=== PATIENT | female | born 1990 | race Caucasian/White ===

== ENCOUNTER 2023-08-20 13:47 | Outpatient (CLI) | payer BC, SELFPAY ==
--- NOTE | 2023-08-20 14:00 | US_ITS ---
Patient: HARRISON FRANZ Facility:?[facility] Patient ID:?[id number] Site Patient ID:?[id number]. Site :?[id number] Study:?US-OB Pelvis TV OB<14wks-08/20/2023 2:34:50 PM Ordering Physician:?Araceli Busch Final Report: INDICATION: First trimester scan, establish dates. COMPARISON: None. TECHNIQUE: Real-time cantu-scale imaging of the pelvis was performed. FINDINGS: Sonographic imaging demonstrates a single living intrauterine gestation. The embryo demonstrates a regular cardiac rate measuring 159 beats per minute. The embryo`s crown-rump length measurement of 2.0 cm corresponds to a gestational age of 8 weeks 4 days with a sonographic due date of 03/27/2024. There is a normal-appearing yolk sac. There are no gross abnormalities noted within the embryo at this early state of development. The gestational sac has a normal appearance. There is no evidence of a perigestational hemorrhage. The amount of fluid within the sac appears appropriate for gestational age. The cervix is closed. The myometrium appears normal. Bilateral corpus luteal cysts. There are no suspicious fluid collections noted in the cul-de-sac. IMPRESSION: Normal first trimester OB ultrasound exam. Gestational age calculated at 8 weeks 4 days with a sonographic due date of 03/27/2024. Dictated by Julio César Case MD @ 08/21/2023 10:15:19 AM Signed by:?Julio César Case MD @08/21/2023 10:15:19 AM (Electronic Signature)
== END 2023-08-20 13:48 | disposition home or self-care (01) ==
LOC: US 13:48
PROVIDERS: Visit Provider Advanced Practice Midwife
DX: Z34.91 Encounter for supervision of normal pregnancy, unspecified, first trimester (principal); Z3A.08 8 weeks gestation of pregnancy
CPT/HCPCS: 76817; 86703; 86706; 86803; 86850; 86900; 86901; 87086; 87340; 87491; 87591

== ENCOUNTER 2023-08-20 14:58 | Outpatient (CLI) | payer BC, SELFPAY ==
[2023-08-20 18:46] LABS: Chlamydia DNA Amplified* NOT DETECTED (No Detected); GC DNA Amplified* NOT DETECTED (No Detected)
== END 2023-08-20 14:59 | disposition home or self-care (01) ==
PROVIDERS: Visit Provider Registered Nurse
DX: Z34.91 Encounter for supervision of normal pregnancy, unspecified, first trimester (principal); Z3A.01 Less than 8 weeks gestation of pregnancy
CPT/HCPCS: 86592; 86703; 86704; 86706; 86762; 86787; 86803; 86850; 86900; 86901; 87086; 87340; 87491; 87591

== ENCOUNTER 2024-01-05 15:23 | Outpatient (CLI) | payer BC, SELFPAY | END 2024-01-05 15:24 | disposition home or self-care (01) | LOC: NFLDREF 15:24 | PROVIDERS: Visit Provider Obstetrics & Gynecology | DX: O09.513 Supervision of elderly primigravida, third trimester (principal); O26.893 Other specified pregnancy related conditions, third trimester; Z67.91 Unspecified blood type, Rh negative; Z3A.28 28 weeks gestation of pregnancy | CPT/HCPCS: 86592; 86850; J2791 ==

== ENCOUNTER 2024-02-02 13:55 | Outpatient (CLI) | payer BC, SELFPAY ==
--- NOTE | 2024-02-02 14:00 | CRLHL7_ITS ---
For Patients: As a result of the Century Cures Act, medical imaging exams and procedure reports are released immediately into your electronic medical record. You may view this report before your referring provider. If you have questions, please contact your health care provider. INDICATION: Size date discrepancy COMPARISON: 08/20/2023 TECHNIQUE: Real time cantu scale imaging of the fetus was performed. FINDINGS: Sonographic imaging demonstrates a single living intrauterine gestation. Fetus demonstrates a regular cardiac rate of 145 beats per minute. Fetus has a vertex position. The placenta lies posteriorly. Amniotic fluid volume appears normal and there is a single deepest vertical pocket: 5.8 cm. The estimated weight is 2389gm which lies at the 93rd %. BPD 68th percentile. HC 81st percentile. AC 96th percentile. FL 79th percentile. The HC/AC ratio measures 1.02 range (0.94-1.11). IMPRESSION: Sonographic gestational age 34 weeks 1 day and sonographic due date of 03/14/2024. Sonographic age 13 days ahead of the clinical age. Estimated weight 93rd percentile. Abdominal circumference is 96th percentile. Dictated by Julio César Case MD @ 02/03/2024 1:32:18 PM (Electronically Signed)
== END 2024-02-02 13:56 | disposition home or self-care (01) ==
LOC: US 13:56
PROVIDERS: PCP Nurse Practitioner Family; Visit Provider Obstetrics & Gynecology
DX: O26.843 Uterine size-date discrepancy, third trimester (principal); O36.63X0 Maternal care for excessive fetal growth, third trimester, not applicable or unspecified; Z3A.34 34 weeks gestation of pregnancy
CPT/HCPCS: 76816

== ENCOUNTER 2024-02-16 13:21 | Outpatient (CLI) | payer BC, SELFPAY | END 2024-02-16 13:22 | disposition home or self-care (01) | LOC: NFLDREF 02-20 04:45 | PROVIDERS: PCP Nurse Practitioner Family; Referring Provider Nurse Practitioner Family; Visit Provider Obstetrics & Gynecology | DX: Z34.03 Encounter for supervision of normal first pregnancy, third trimester (principal) | CPT/HCPCS: 82728 ==

== ENCOUNTER 2024-02-20 12:57 | Outpatient (RCR) | payer BC, SELFPAY ==
--- NOTE | 2024-02-17 13:54 | PC.NURSE ---
Diagnosis: ROSA in
--- NOTE | 2024-02-18 10:07 | URNOTE ---
?Request received for authorization for Alexandra ([id number]). Prior authorization is not required per [facility] Ref#[id number].
[2024-02-20 13:10] VITALS: BP 117/66; PULSE 81; RESP 16; TEMP 36.4; O2SAT 97
[2024-02-20] MEDS: IRON SUCROSE COMPLEX 200 MG in 0.9 % SODIUM CHLORIDE 100 ml 440 MG IVPB (13:19)
[2024-02-20 13:40] VITALS: BP 111/73; PULSE 78; RESP 16; TEMP 36.6; O2SAT 94
== END 2024-08-18 23:59 | disposition home or self-care (01) ==
LOC: CCIC 12:57
PROVIDERS: PCP Nurse Practitioner Family; Referring Provider Nurse Practitioner Family; Visit Provider Clinical Nurse Specialist
DX: O99.013 Anemia complicating pregnancy, third trimester (principal); D50.9 Iron deficiency anemia, unspecified
CPT/HCPCS: 96374; J1756

== ENCOUNTER 2024-03-01 15:10 | Outpatient (CLI) | payer BC, SELFPAY ==
[2024-03-02 11:30] LABS: Strep B DNA Probe POSITIVE (Negative)
[2024-03-02 12:05] LABS: Strep B Susceptibility Needed? No
== END 2024-03-01 15:11 | disposition home or self-care (01) ==
LOC: NFLDREF 15:10
PROVIDERS: PCP Nurse Practitioner Family; Visit Provider Obstetrics & Gynecology
DX: Z34.93 Encounter for supervision of normal pregnancy, unspecified, third trimester (principal); Z3A.36 36 weeks gestation of pregnancy
CPT/HCPCS: 76816; 87081; 87653

== ENCOUNTER 2024-03-21 06:56 | Outpatient (CLI) | payer BC, SELFPAY ==
[2024-03-21 07:12] VITALS: PULSE 62; O2SAT 99
[2024-03-21 07:13] VITALS: BP 136/81; PULSE 60; TEMP 36.7
[2024-03-21 08:42] VITALS: BP 128/76; PULSE 58
--- NOTE | 2024-03-21 09:44 | PC.OBNST ---
NST Note NST Note Start: 03/21/24 09:40 Freq: ONCE Status: Active Protocol: Document 03/21/24 09:41 ARC (Rec: 03/21/24 09:43 ARC No Response) NST Note 1 Para (# of births) 0 EDC 03/27/24 Gestational Age In Weeks & Days 39 Weeks & 1 Days High Risk Factors Advanced Maternal Age Patient Presented with Complaint(s) of Contractions/cramping Reactive Yes Appropriate for Gestational Age Yes AMY Ackerman RN Date 03/21/24 Reactive Yes Appropriate for Gestational Age Yes AMY Roca RN Date 03/21/24 OB NST charge Yes Complete NST Note via Write Note Yes The provider's electronic signature indicates the NST is reactive/appropriate for gestational age. *Note to provider: If an addendum is required, open the patient's chart and click on the note under the Nurse/Allied Health tab.
== END 2024-03-21 09:00 | disposition home or self-care (01) ==
LOC: OB OUT 06:58 → OB 06:58
PROVIDERS: PCP Nurse Practitioner Family; Visit Provider Obstetrics & Gynecology
DX: O47.1 False labor at or after 37 completed weeks of gestation (principal); Z3A.39 39 weeks gestation of pregnancy
CPT/HCPCS: 01967; 36415; 59025; 82565; 82570; 84156; 84450; 84460; 84520; 85025; 86850; 86870; 86900; 86901; G0463; A9270; J0290; J0665; J2003; J2795; J7120

== ENCOUNTER 2024-03-21 14:47 | Inpatient (IN) | payer BC, SELFPAY ==
[2024-03-21] VITALS (87 sets, daily range): BP systolic 103–153; BP diastolic 53–88; PULSE 60–98; RESP 16–18; TEMP 36.6–37.7; O2SAT 93–100; BMI 35.0
--- NOTE | 2024-03-21 14:46 | P.LDBA_ITS ---
Subjective History of Present Illness Time Seen by Provider: 14:46 Date Seen: 03/21/24 Narrative: Bryan is being admitted to Labor and Delivery for spontaneous onset of labor. She is a 34 year old at 39 and 1/7 weeks gestation. Her full history and physical was dictated by Dr. Vasquez on 03/08/2024. Please see this for details. Specific Issues/Plans G 1 P 0 Spouse: Glenroy H&P done on 03/08/[address] Vasquez #. Advanced maternal age. * Genetic screening: negative, XX * Recommend daily baby aspirin 12 weeks. * Level 2 ultrasound 11/03/2023: SLIUP, Vtx., post placenta, no previa, 3 vessel cord. EFW 82%. No anatomic abnormalities identified. #Anemia * 28 weeks 01/05/24: hgb 10.2 * Start SlowFE QOD w/ food. * Recheck hgb at 34 weeks. # Suspected macrosomia * Size greater than date on fundal height * Growth US on 02/02/24 at 32 weeks: EFW 93%tile (2389g/5lb 4oz), AC 96.1%tile * Repeat growth at 36 weeks: EFW 76.0%tile, AC 83.0%tile. SDP 7.8 cm. # Nicotine use. Stopped smoking 02/09/2023. Stopped nicotine gum mid-July 2023. # Delta 9 THC gummies for relaxation. Advised patient to discontinue use. Rh Negative. Rhogam 01/05/2024 Covid 2022: Booster Administered at 1st OB visit. Covid 2023:02/16/24 Flu:02/16/24 Tdap: 01/18 RSV: 02/02/2024 32 wk: 02/02/2024 PHQ-9: 2; DOROTEO-7: 0 34 week hemoglobin: 10.2. IV iron on 02/20/24 GBS: Positive OB - Problem Based A/P Additional Plan (1) Spontaneous onset of labor: Status: Acute Plan 1. Admit to the Center. 2. Epidural for labor analgesia if desired. 3. GBS (+): ampicillin for prophylaxis. 4. Blood type: O negative. OB Exam Physical Exam Vital signs: Pulse BP Pulse Ox 62 138/80 98 03/21/24 13:22 03/21/24 13:22 03/21/24 13:20 Narrative: General: Pleasant, woman who is uncomfortable with contractions. Vital signs: per EMR Heart: Regular rate and rhythm without gallop, rub or murmur Chest: CTA bilaterally. Abdomen: Gravid, nontender. EFM: 140's, moderate variability, sporadic early and variable decelerations, (+) accelerations. Reactive. Category 2. TOCO: Q2-4 minutes. SVE (per nursing): 3/60%/-2 Extremities: no pain or edema
[2024-03-21 15:15] LABS: Basophils Percent Auto 0.1 % (0.0-3.0); Hematocrit 30.8 % (33.0-51.0); Hemoglobin* 10.6 gm/dL (12.0-16.0); Immature Granulocytes Pct Auto 0.3 %; Lymphocytes Percent Auto 7.8 % (20-44); Mean Corpuscular HGB Conc 34 gm/dL (32-36); Mean Corpuscular Hemoglobin 31 pg (26-34); Mean Corpuscular Volume 90 fL (80-100); Neutrophils Percent Auto 87.8 % (42.0-72.0); Platelet Count* 217 K/uL (140-440); RDW Coefficient of Variation % 13.1 % (11.5-15.5); Red Blood Count 3.41 m/uL (4.00-5.20); White Blood Count* 14.54 K/uL (4.50-11.00)
[2024-03-21] MEDS: LACTATED RINGERS 1000 ML 1,000 ML 1125 ML IV (15:16)
[2024-03-21 15:28] LABS: Slide Review Reflex No
[2024-03-21] MEDS: AMPICILLIN 2 GM in 0.9 % SODIUM CHLORIDE Mini-bag 100 ML IVPB (15:30)
[2024-03-21 15:55] LABS: Creatinine* 0.4 mg/dL (0.5-1.5); Est. Creatinine Clearance* 162.39; Estimated Glomerular Filt Rate 132 ml/min
[2024-03-21 15:56] LABS: Alanine Aminotransferase* 16 U/L (4-35); Aspartate Amino Transferase* 24 U/L (12-35); Blood Urea Nitrogen* 7 mg/dL (5-24)
[2024-03-21] MEDS: ROPIVACAINE 0.2% 100 ml 100 ML 12 MG EPIDURAL ×3 (15:58→23:55)
[2024-03-21] MEDS: LIDOCAINE 2% (PF) 5 ML VIAL EPIDURAL (15:58)
--- NOTE | 2024-03-21 16:01 | P.ANBPRC_ITS ---
[facility] Medical History Nicotine use ?Z72.0 - Tobacco use (ICD-10) Social History What is your current living situation?: I presently have a place to live Problems where you live: no known problems In the past 12 months, utilities in danger of being shut off: no In past 12 months, lack of transportation kept you from medical appts, meetings, work, or getting things needed for daily living: no In the past 12 mos, have been you worried that your food would run out before you had money to buy more?: never true In the past 12 mos, the food you bought just didn't last and you didn't have money to buy more?: never true Smoking Status: Former smoker How often does anyone, including family, friends and others, physically hurt you : never How often does anyone, including family, friends and others, insult or talk down to you: never How often does anyone, including family, friends and others, threaten you with harm: never How often does anyone, including family, friends and others, scream or curse at you: never Little interest or pleasure in doing things: not at all Feeling down, depressed, or hopeless: not at all Meds Home Medications and Allergies Home Medications ?Medication ?Instructions ?Recorded ?Confirmed ?Type ascorbic acid (vitamin C) 1,000 mg 1 g PO Q6H 08/20/23 03/21/24 History capsule cholecalciferol (vitamin D3) 25 25 mcg PO QDAY 08/20/23 03/21/24 History mcg (1,000 unit) capsule docosahexaenoic acid 200 mg mg PO 08/20/23 03/15/24 History capsule ( DHA) aspirin 81 mg tablet,delayed 81 mg PO QDAY 09/17/23 03/21/24 History release (Adult Low Dose Aspirin) Allergies Allergy/AdvReac Type Severity Reaction Status Date / Time No Known Drug Allergies Allergy Verified 03/15/24 14:37 Results Labs Labs: Laboratory Results - last 24 hr 03/21/24 15:08 WBC 14.54 H RBC 3.41 L Hgb 10.6 L Hct 30.8 L MCV 90 MCH 31 MCHC 34 RDW Coeff of Jacques 13.1 Plt Count 217 Neut % (Auto) 87.8 H Lymph % (Auto) 7.8 L [place] % (Auto) 4.0 Eos % (Auto) 0.0 Baso % (Auto) 0.1 Neut # (Auto) 12.80 H Lymph # (Auto) 1.10 [place] # (Auto) 0.60 Eos # (Auto) 0.00 Baso # (Auto) 0.00 Abs Immat Gran (auto) 0.00 Imm/Tot Granulo (auto) 0.3 BUN 7 Creatinine 0.4 L Estimated Creat Clear 162.39 Estimated GFR 132 AST 24 ALT 16 Vital Signs Vital Signs: Last Vital Signs Temp 98 F 03/21/24 15:26 Pulse 82 03/21/24 15:59 Resp 18 03/21/24 15:26 BP 137/70 03/21/24 15:59 Pulse Ox 100 03/21/24 15:58 Weight: 89.811 kg Height: 160.02 cm Anesthesia Procedures Epidural Insertion Patient Location: OB Start Time: 15:20 Stop Time: 16:02 Start Date: 03/21/24 Stop Date: 03/21/24 Reason for Block: procedure for pain Patient Position: sitting Performed By: Guille Rubio Preanesthetic Checklist: IV checked, risks and benefits discussed, surgical consent, monitors and equipment checked, pre-op evaluation, timeout performed and anesthesia consent Prep: chlorhexidine gluconate Monitoring: blood pressure monitoring, continuous pulse oximetry and heart rate Approach: midline Vertebral Space: lumbar (1-5) Epidural Technique: BRUNILDA air Needle Type: Tuohy needle Injection Technique: continuous catheter Needle gauge: 17 Needle Length (cm): 10 cm Needle Insertion Depth (cm): 7 Catheter Gauge: 19 Catheter Type: multi-orifice Catheter at skin depth (cm): 13 Test Dose Result: negative and lidocaine 1.5% with epinephrine 1 to 200,000
[2024-03-21] MEDS: BUPIVACAINE 0.25% PF 10 ML 10 ML ML EPIDURAL (16:08)
[2024-03-21] MEDS: LACTATED RINGERS 1000 ML 1,000 ML 125 ML IV (16:21)
[2024-03-21 16:43] LABS: Total Protein Urine 61 mg/dL
[2024-03-21 16:44] LABS: Creatinine Urine 149.2 mg/dL; Protein Creatinine Ratio Urine 0.41 (0-0.19)
[2024-03-21] MEDS: AMPICILLIN 1 GM in 0.9 % SODIUM CHLORIDE Mini-bag 100 ML IVPB (19:30)
--- NOTE | 2024-03-21 19:47 | P.OBPN_ITS ---
Subjective Time Seen by Provider: 19:48 Date Seen: 03/21/24 Narrative: Subjective: Patient is comfortable w/ epidural. She does not have Pitocin running but has not had her contractions well monitored. Verbal consent obtained for artificial rupture of membranes. Vital signs: Per electronic medical record. EFM: Baseline 140s, positive accelerations, variable decelerations, moderate variability, nonreactive. Category 2. [place]: Contractions every 5 -8 minutes. SVE: 7 cm/90 %/0. AROM: Light meconium. Assessment: 34-year-old 1 para 0 at 39 weeks 1 days gestation spontaneous onset of labor, light meconium-stained amniotic fluid slow progress in the active phase. Plan: 1. Will start Pitocin for labor augmentation. 2. Continue epidural. 3. Second dose of ampicillin started at 7:30PM Objective Vital Signs: Last Vital Signs Temp 98.3 F 03/21/24 19:22 Pulse 77 03/21/24 19:37 Resp 16 03/21/24 19:22 BP 143/69 H 03/21/24 19:37 Pulse Ox 96 03/21/24 16:43
[2024-03-21] MEDS: OXYTOCIN 30 unit/500 ML in NS 30 UNIT/500 ML BAG IVPB (21:43)
--- NOTE | 2024-03-21 21:53 | PM.OBPNL ---
Subjective Time Seen by Provider: 21:53 Date Seen: 03/21/24 Narrative: Subjective: Patient is comfortable w/ epidural.. Reports feeling rectal pressure with contractions. Vital signs: Per electronic medical record. EFM: Baseline 140s, positive accelerations, sporadic small variable decelerations, moderate variability, reactive. Category to. [place]: Contractions every 2 minutes. SVE: 7 cm/90 %/-0. No change in dilation since 7:30 p.m. IUPC placed after verbal consent obtained from the patient. Assessment: 34-year-old 1 para 0 at 39 weeks 1 days gestation undergoing spontaneous onset of labor now inadequate by intrauterine pressure catheter Plan: 1. Start Pitocin for labor augmentation. 2. Continue epidural for labor analgesia Objective Vital Signs: Last Vital Signs Temp 98.2 F 03/21/24 20:30 Pulse 82 03/21/24 21:52 Resp 16 03/21/24 20:30 BP 119/58 L 03/21/24 21:52 Pulse Ox 96 03/21/24 16:43
[2024-03-22] VITALS (24 sets, daily range): BP systolic 109–156; BP diastolic 58–80; PULSE 61–208; RESP 12–18; TEMP 36.8–37.6; O2SAT 85–100
[2024-03-22] MEDS: OXYTOCIN 30 unit/500 ML in NS 30 UNIT/500 ML BAG 300 UNIT IVPB (01:14)
[2024-03-22] MEDS: miSOPROStoL 800 MCG/4 TABLET PR (01:23)
--- NOTE | 2024-03-22 01:44 | W.PM.OBVAGDE ---
OB Procedure Vag Delivery Mother Details Mother Details: Bryan is a 34 year-old G 1 P 0 now 1 admitted on 03/21/2024 at 2:00 p.m. at 39 Weeks, 1 Days gestation for spontaneous onset of labor. AROM occurred at 7:36 p.m. on 03/21/2024 with light meconium-stained fluid. Labor Analgesia: Epidural Pitocin: Yes Labor onset: 03/21/2024 at 1:00 p.m.. Complete: 03/22/2024 at 12:49 a.m.. Pushin03/22/2024 at 12:49 a.m.. heart tones during second stage were: Category 2, reassuring moderate variability with some variable and early decelerations with contractions. Immediate return to baseline.. At 1:13 a.m. a viable female delivered in vertex direct OA presentation over 2nd degree perineal laceration and first-degree periurethral laceration via spontaneous vaginal delivery. The infant was placed on maternal abdomen. Cord was clamped and cut after a 60 second delay. Nose and mouth were bulb suctioned. weight pending. 8 at 1 minute and 9 at 5 minutes. Shoulder dystocia: No. Nuchal cord: No Placenta delivered spontaneously and complete at 1:21 a.m. with a 3 vessel cord. Laceration(s): 2nd degree perineal. Repaired using 3-0 Vicryl suture in the usual manner. Midline first-degree periurethral repaired with 4-0 Vicryl in a running manner. Blood loss: 400 mL. Blood loss measurement type: Quantitative Sponge and needles counts are correct. Specimen: Placenta Mother and were stable after delivery. Infant's name: Pending The patient is planning on breast feeding. : 1 Para: 1 Weeks Gestation: 39 Admission Date: 03/21/24 Additional Details Amniotic Membrane Status: AROM Amniotic Membrane Rupture Date: 03/21/24 Amniotic Membrane Rupture Time: 19:36 Amniotic Membrane Fluid Description: Meconium Stained Analgesia/Anesthesia Type: Epidural Waterbirth: No Pitcoin: Yes Intrapartal Events: Labor Augmentation Delivery augmentation: rupture of membranes and pitocin Labor Onset: 13:00 Complete: 00:49 Pushin:49 Heart: heart tones during second stage were category 2 with moderate variability with intermittent variable or early decelerations with contractions and immediate return to baseline. Delivery Details Delivery Date: 03/22/24 Delivery Time: 01:13 Route of delivery: Gender: Female Infant Viability: Alive; Heart Rate Present Position at Delivery: OA Delivery Details: Delivered over second-degree perineal and first-degree periurethral lacerations via spontaneous vaginal delivery. Infant was placed on maternal abdomen.? Cord was clamped and cut after a 30-60 second delay. Nose and mouth were bulb suctioned.? Infant weight pending. 1 Minute Interval Total Score: 8 5 Minute Interval Total Score: 9 Additional Details Shoulder Dystocia: No Placenta Delivery Time: 01:21 Placental Delivery Description: Spontaneous Delivery repair: Vicryl Procedure Done: Global Laceration: Perineal - 2nd Degree (And first-degree midline periurethral) Blood Loss Measurement Type: QBL Bakri Used: No Sponge/Need Count Correct: Yes Cord Vessel Description: 3 Vessels Event Summary Status: Mother and infant were stable after delivery. Disposition: floor
[2024-03-22] MEDS: LIDOCAINE 1 % PF 30 ML INJECTION (02:26)
[2024-03-22] MEDS: IBUPROFEN 600 MG TABLET PO ×4 (02:27→20:36)
[2024-03-22] MEDS: ACETAMINOPHEN 500 MG TABLET 1000 MG PO ×3 (06:03→18:08)
[2024-03-22] MEDS: DOCUSATE SODIUM 100 MG CAPSULE PO (08:38)
--- NOTE | 2024-03-22 09:45 | PM.ANPOST ---
Post Anesthesia Note Post Anesthesia Note Patient seen: Inpatient Respiratory Status: adequate Cardiovascular Status: adequate Mental Status: baseline Pain: adequate Temp: baseline Anesthetic awareness: N/A Complications: none Follow care: none
[2024-03-23] VITALS (8 sets, daily range): BP systolic 119–147; BP diastolic 76–84; PULSE 60–72; RESP 12–16; TEMP 36.4–36.9; O2SAT 98
[2024-03-23] MEDS: ACETAMINOPHEN 500 MG TABLET 1000 MG PO (00:29)
[2024-03-23 06:51] LABS: Hemoglobin* 8.5 gm/dL (12.0-16.0)
--- NOTE | 2024-03-23 08:51 | PM.OBPNVD1 ---
OB - PN:Subj Subjective Date Seen: 03/23/24 Narrative: Cassie is a 34 y.o. who was admitted to L & D for labor.? She had an uncomplicated NVD.? ?? The patient feels well.? The pain is well controlled with current medications.? She has no new complaints.? She is breast feeding and reports things are going well.? the patient has done well.? Vitals have been stable.? She has remained afebrile.? Has a good appetite, is tolerating a general diet.? She is voiding without difficulty.? She is passing gas and has not had a bowel movement.? She is ambulating and denies any dizziness.? Has Small amount of rubra lochia.?She denies feeling lightheaded or dizzy when up. OB - PN: Obj Exam Physical Exam: Vital signs: Temp Pulse Resp BP Pulse Ox O2 Del Method 98.0 F 60 16 119/77 98 Room Air 03/23/24 07:53 03/23/24 07:53 03/23/24 07:53 03/23/24 08:05 03/23/24 05:19 03/23/24 05:19 Narrative: GENERAL APPEARANCE:? normal affect, alert, no distress? MOOD:? appropriate? HEENT: normocephalic, neck supple, full ROM? CHEST:? Symmetrical chest wall movement.? Normal respiratory effort.? Clear to auscultation ? HEART:? regular rate and rhythm? ABDOMEN:? soft, non-tender. Uterine fundus is firm, at Umbilicus, Midline and is appropriate for the stage of recovery.? Bowel sounds present.? PERINEUM:? mild edema of the perineum, there is a 2nd degree laceration that is healing well.? EXTREMITIES:? normal and no edema? OB - PN: Obj Data Labs Labs: Laboratory Results - last 24 hr 03/21/24 03/23/24 15:08 06:28 Hgb 8.5 L Antibody Identification Specificity Undetermined OB - PN: A/P Delivery Assessment and Plan (1) Lactating mother: Status: Acute (2) care and examination immediately after delivery: Status: Acute (3) Anemia: Status: Acute (4) Mild preeclampsia: Status: Acute Plan day: 1 Plan: routine care Comments: G 1 P 1 status post uncomplicated NVD??? 1.? Continue route PP cares? 2.? .? May see if desired? 3.? Anticipate discharge home tomorrow? 4. ?Acute anemia.? Iron supplement ordered. 5. Mild preeclampsia with stable blood pressures at this time, routine monitoring per protocol
[2024-03-23] MEDS: FERROUS SULFATE 325 MG TABLET PO (09:13)
[2024-03-23] MEDS: DOCUSATE SODIUM 100 MG CAPSULE PO (09:13)
[2024-03-23 13:34] LABS: Rapid Plasma Reagin (RPR) Non Reactive (Non Reactive)
[2024-03-24 02:00] VITALS: BP 138/82
[2024-03-24 05:16] VITALS: BP 138/86; PULSE 76; RESP 16; TEMP 36.6; O2SAT 98
--- NOTE | 2024-03-24 08:09 | P.DS_ITS ---
DS: Providers Provider Date Seen: 03/24/24 Date of admission: 03/21/24 14:47 Primary care physician: Renetta Davila CNP Admitting Clinician: Modesta Singh MD Attending Physician on discharge: Marcie Vann CNM DS: Diagnosis Discharge Diagnosis (1) care and examination immediately after delivery: Status: Acute (2) Lactating mother: Status: Acute (3) Anemia: Status: Acute Exam Narrative: Exam Narrative: GENERAL APPEARANCE:? normal affect, alert, no distress MOOD:? appropriate CHEST:? clear to auscultation HEART:? regular rate and rhythm ABDOMEN:? soft, non-tender the uterine fundus is At Umbilicus, Midline and is appropriate for the stage of recovery. PERINEUM:? mild edema of the perineum, there is a Perineal Laceration,?2nd degree, that is healing well. EXTREMITIES:? normal and no edema Const: Vital Signs, click to edit/add: Vital Signs - 24 hr 03/23/24 12:09 03/23/24 15:43 03/23/24 16:03 Temperature 98.1 F 98.4 F Pulse Rate [Pulse Oximeter] 60 60 Respiratory Rate 16 16 Blood Pressure [Le ft Arm] 138/84 147/80 H 128/77 Pulse Oximetry Oxygen Delivery Me thod Room Air 03/23/24 21:30 03/24/24 02:00 03/24/24 05:16 Temperature 98.0 F 97.8 F Pulse Rate [Pulse Oximeter] 72 76 Respiratory Rate 16 16 Blood Pressure [Le ft Arm] 136/84 138/82 138/86 Pulse Oximetry 98 98 Oxygen Delivery Me thod Room Air Room Air Documenting provider has reviewed patient's vital signs: yes OB - DS: Summary Hospital Course Hospital Course: Bryan is a 34 y.o. G 1 P 1 who was admitted to L & D for spontaneous onset of labor and was diagnosed with Pre-e without SF during labor. ?She had a NVD that was uncomplicated. The patient feels well. ?The pain is well controlled with current medications. ?She has no new complaints. ?She is breast feeding and reports things are going okay. Meeting with . the patient has done well.? Vitals have been stable.? She has remained afebrile.? Has a good appetite, is tolerating a general diet. ?She is voiding without difficulty.? She is passing gas and has not had a bowel movement.? She is ambulating and denies any dizziness.? Has small amount of rubra lochia. She is undecided on her plan for prevention. Problems: anemia plan: Discharge home with baby. Follow up in 2 weeks and 6 weeks. , may see if needed. Encouraged her to do this even after discharge. Hgb 8.5. Iron supplement ordered orally every other day Pre-E diagnosed by elevated BP greater than 4 hours apart Labs WNL Discharge home with BP cuff if does not already have one Follow up in 3-5 days Call for signs/symptoms of preeclampsia Peripartum Data delivery method: Vaginal Laceration description: Perineal - 2nd Degree complications: none [place] Infant Gender: Female Infant Discharge Plan: Home Status at Discharge Functional status at discharge: independent ambulation Overall status at discharge: patient is progressing back to baseline Time Spent with Patient Time attestation: Total time spent providing and/or coordinating discharge services: Time spent: Less than 30 minutes Discharge Plan Discharge Disposition: Home, Self-Care Date of Admission: 03/21/24 14:47 Attending Provider on Discharge: Monica Cordoba Primary Care Provider: Renetta Davila Condition: Stable Anticipated Discharge Date/Time: 03/24/24 Discharge Medications: New docusate sodium 100 mg Capsule 100 mg PO BID PRNQty: 90 0RF ferrous sulfate 325 mg (65 mg iron) Tablet 325 mg PO Q48H Qty: 90 0RF acetaminophen 500 mg Tablet 1,000 mg PO Q6H PRNQty: 0 0RF ibuprofen 600 mg Tablet 600 mg PO Q6H PRNQty: 60 0RF Continued ascorbic acid (vitamin C) 1,000 mg capsule 1 g PO Q6H cholecalciferol (vitamin D3) 25 mcg (1,000 unit) capsule 25 mcg PO QDAY DHA 200 mg capsule 200 mg PO DAILY Discontinued aspirin [Adult Low Dose Aspirin] 81 mg tablet,delayed release (DR/EC) 81 mg PO QDAY Discharge Orders: Discharge Order (Routine); Ordered 03/24/24 Ordered By: Marcie Vann Patient Education: OB Over the Counter Medication Information, OB Vaginal/Breast Feeding Additional Instructions: Discharge instructions were reviewed with the patient including signs and symptoms of infection and home going medications Nothing vaginally for 6 weeks: no tampons or intercourse Off Work or School for 6 weeks Follow Up [facility] for a BP check?3-5 days Call with BP greater than or equal to 160/110 2-week visit: discuss feeding concerns, review control options and screen for anxiety/depression. 6-week visit for an annual exam. consultation services are available to all mothers and babies for the first year after delivery.? To make an appointment, please call [phone]. Activity Level: Activity as Tolerated Follow Up Appointments: [facility] [Provider Group] Forms: [employer] Info Instructions
[2024-03-24 08:14] VITALS: BP 129/81; PULSE 69; RESP 16; TEMP 37.1
[2024-03-24 09:01] LABS: Hemoglobin* 9.3 gm/dL (12.0-16.0)
[2024-03-24] MEDS: IBUPROFEN 600 MG TABLET PO (10:41)
[2024-03-24] MEDS: DOCUSATE SODIUM 100 MG CAPSULE PO (10:41)
[2024-03-24 13:34] VITALS: BP 127/78; PULSE 60; RESP 16; TEMP 37.2
== END 2024-03-24 14:00 | disposition home or self-care (01) | DRG 560 ==
LOC: OB OUT 14:48 → OB 14:48
PROVIDERS: Advanced Practice Midwife; Admitting Provider Obstetrics & Gynecology; PCP Nurse Practitioner Family; Visit Provider Obstetrics & Gynecology
DX: O99.02 Anemia complicating childbirth (principal); O99.824 Streptococcus B carrier state complicating childbirth; D64.9 Anemia, unspecified; O14.04 Mild to moderate pre-eclampsia, complicating childbirth; O77.0 Labor and delivery complicated by meconium in amniotic fluid; O70.1 Second degree perineal laceration during delivery; O70.0 First degree perineal laceration during delivery; O99.334 Smoking (tobacco) complicating childbirth; F17.211 Nicotine dependence, cigarettes, in remission; O99.324 Drug use complicating childbirth; F12.10 Cannabis abuse, uncomplicated; Z3A.39 39 weeks gestation of pregnancy; Z37.0 Single live birth; O47.1 False labor at or after 37 completed weeks of gestation
CPT/HCPCS: 01967; 36415; 59025; 82565; 82570; 84156; 84450; 84460; 84520; 85018; 85025; 86592; 86850; 86870; 86880; 86885; 86900; 86901; 88307; G0463; A9270; J0290; J0665; J2003; J2371; J2795; J7120

== ENCOUNTER 2024-03-26 14:16 | Outpatient (CLI) | payer BC, SELFPAY | END 2024-03-26 14:17 | disposition home or self-care (01) | PROVIDERS: PCP Nurse Practitioner Family; Visit Provider Obstetrics & Gynecology | DX: O14.95 Unspecified pre-eclampsia, complicating the puerperium (principal) | CPT/HCPCS: 82565; 84450; 84460; 84520 ==

== ENCOUNTER 2024-03-26 17:47 | Inpatient (IN) | payer BC, SELFPAY ==
[2024-03-26] VITALS (14 sets, daily range): BP systolic 129–159; BP diastolic 68–90; PULSE 57–80; RESP 16–18; TEMP 36.6–36.7; O2SAT 95–98
--- NOTE | 2024-03-26 18:06 | P.LDBA_ITS ---
Subjective History of Present Illness Narrative: Bryan is a 34-year-old G1 now P 1-0-0-1 woman who is status post normal spontaneous vaginal delivery on 03/22/2024 after presenting in spontaneous labor at 39 weeks, 2 days gestation. She was diagnosed with preeclampsia during her intrapartum course. She had an uncomplicated spontaneous vaginal delivery. She had a second-degree perineal laceration and a midline first-degree periurethral laceration. EBL was 400 mL. She gave to a female . Her was otherwise complicated by/notable for: 1. Advanced maternal age 2. Anemia 3. Suspected macrosomia 4. Use of THC gummies. During her course, she did not require any antihypertensives. Preeclampsia labs were normal during her inpatient stay. She was discharged after having been normotensive for 24 hours on day 2. She presented to clinic today for a blood pressure check. She was found to have blood pressures in the 140s over 90s. She had HELLP labs which are summarized below; in summary, her AST is greater than twice the upper limit of normal. T his qualifies for the diagnosis of preeclampsia with severe features. Her full history and physical was dictated by Dr. Vasquez on 03/08/24. Please see this for details. Specific Issues/Plans G 1 P 0 Spouse: Glenroy H&P done on 03/08/[address] Vasquez #. Advanced maternal age. * Genetic screening: negative, XX * Recommend daily baby aspirin 12 weeks. * Level 2 ultrasound 11/03/2023: SLIUP, Vtx., post placenta, no previa, 3 vessel cord. EFW 82%. No anatomic abnormalities identified. #Anemia * 28 weeks 01/05/24: hgb 10.2 * Start SlowFE QOD w/ food. * Recheck hgb at 34 weeks. # Suspected macrosomia * Size greater than date on fundal height * Growth US on 02/02/24 at 32 weeks: EFW 93%tile (2389g/5lb 4oz), AC 96.1%tile * Repeat growth at 36 weeks: EFW 76.0%tile, AC 83.0%tile. SDP 7.8 cm. # Nicotine use. Stopped smoking 02/09/2023. Stopped nicotine gum mid-July 2023. # Delta 9 THC gummies for relaxation. Advised patient to discontinue use. Rh Negative. Rhogam 01/05/2024 Covid 2022: Booster Administered at 1st OB visit. Covid 2023:02/16/24 Flu:02/16/24 Tdap: 01/18 RSV: 02/02/2024 32 wk: 02/02/2024 PHQ-9: 2; DOROTEO-7: 0 34 week hemoglobin: 10.2. IV iron on 02/20/24 GBS: Positive OB - Problem Based A/P Additional Plan (1) Pre-eclampsia affecting puerperium: Problem details: with severe features by transaminitis Status: Acute Plan Re admit for IV magnesium sulfate infusion for 24 hours. Strict ins and outs. HELLP labs every 6 hours during magnesium infusion. Limit fluid intake to 2 L orally per 24 hour period. Anticipate use of nifedipine ER 30 mg daily upon discharge; this was previously prescribed today. OB Result Labs Labs: Labs from 1433 today: Hemoglobin 8.9, hematocrit 26.0, platelets 227 BUN 8, creatinine 0.5 AST 71, ALT 85 Her last hemoglobin was 9.3 on 03/24/2024 OB Exam Physical Exam Narrative: Physical exam: General: No acute distress Psych: Alert and oriented x3, full affect HEENT: Normocephalic, atraumatic, oropharynx benign Neck: No cervical adenopathy, no thyromegaly Heart: Regular rate and rhythm, no murmur rub or gallop Lungs: Clear to auscultation bilaterally Abdomen: Normoactive bowel sounds, soft, no tenderness, rebound, or guarding, no masses, no hepatosplenomegaly, no hernias Skin: No lesions or rashes Breasts: no nodules or masses, no nipple discharge, no axillary adenopathy Lower extremities: No edema or erythema Pelvic exam: Mons normal, clitoris normal, urethral meatus normal. Labia minora and majora normal in appearance bilaterally. Perineum and anus normal appearance. Vaginal introitus normal appearance. Vagina pink and well rugated with scant white discharge. Cervix pink and without lesion. Bimanual exam reveals uterus to be soft, nontender, mobile, anteverted, of normal size and texture. No palpable adnexal masses or tenderness.
[2024-03-26] MEDS: LACTATED RINGERS 1000 ML 1,000 ML 75 ML IV (18:47)
[2024-03-26] MEDS: MAGNESIUM IV 4 GM/100 ML PIGGYBACK IVPB (18:52)
[2024-03-26] MEDS: MAGNESIUM Infusion 40 GM/1,000 ML IV.SOLN IVPB (19:22)
[2024-03-26 20:08] LABS: Hematocrit 28.6 % (33.0-51.0); Hemoglobin* 9.8 gm/dL (12.0-16.0); Mean Corpuscular HGB Conc 34 gm/dL (32-36); Mean Corpuscular Hemoglobin 32 pg (26-34); Mean Corpuscular Volume 92 fL (80-100); Platelet Count* 226 K/uL (140-440); White Blood Count* 10.05 K/uL (4.50-11.00)
[2024-03-26 20:27] LABS: Alanine Aminotransferase* 97 U/L (4-35); Aspartate Amino Transferase* 77 U/L (12-35); Blood Urea Nitrogen* 7 mg/dL (5-24); Creatinine* 0.5 mg/dL (0.5-1.5); Est. Creatinine Clearance* 129.91; Estimated Glomerular Filt Rate 125 ml/min
[2024-03-26 20:31] LABS: Slide Review Reflex No
[2024-03-27] VITALS (9 sets, daily range): BP systolic 119–156; BP diastolic 68–88; PULSE 73–82; RESP 16; TEMP 36.4–36.8; O2SAT 95–98
[2024-03-27] MEDS: IBUPROFEN 600 MG TABLET PO ×3 (01:06→17:08)
[2024-03-27] MEDS: NIFEdipine 30 MG TAB.ER.24 PO ×2 (01:31→21:02)
[2024-03-27 02:16] LABS: Hematocrit 27.2 % (33.0-51.0); Hemoglobin* 9.4 gm/dL (12.0-16.0); Mean Corpuscular HGB Conc 35 gm/dL (32-36); Mean Corpuscular Hemoglobin 31 pg (26-34); Mean Corpuscular Volume 91 fL (80-100); Platelet Count* 216 K/uL (140-440); Red Blood Count 2.99 m/uL (4.00-5.20); White Blood Count* 9.43 K/uL (4.50-11.00)
[2024-03-27 02:19] LABS: Slide Review Reflex No
[2024-03-27 02:33] LABS: Creatinine* 0.4 mg/dL (0.5-1.5); Est. Creatinine Clearance* 162.39; Estimated Glomerular Filt Rate 132 ml/min
[2024-03-27 02:34] LABS: Alanine Aminotransferase* 88 U/L (4-35); Aspartate Amino Transferase* 68 U/L (12-35); Blood Urea Nitrogen* 5 mg/dL (5-24)
[2024-03-27] MEDS: ACETAMINOPHEN 500 MG TABLET 1000 MG PO ×3 (07:10→20:31)
[2024-03-27] MEDS: LACTATED RINGERS 1000 ML 1,000 ML 75 ML IV (07:37)
--- NOTE | 2024-03-27 08:10 | PM.OBPNVD1 ---
OB - PN:Subj Subjective Time Seen by Provider: 08:15 Date Seen: 03/27/24 Narrative: Bryan is a 34-year-old seen on day 5 for readmission for preeclampsia with severe features (new transaminitis). She is status post on 03/22 following induction for preeclampsia without severe features. At a blood pressure check and lab check yesterday, she is found to have new transaminitis was admitted. Magnesium sulfate was started. She was initiated on nifedipine 30 mg XL daily overnight. This morning, she is feeling well. Denies headache, vision changes right upper quadrant pain. No acute concerns. Pain is well controlled, lochia is minimal. OB - PN: Obj Exam Physical Exam: Vital signs: Temp Pulse Resp BP Pulse Ox O2 Del Method 97.9 F 81 16 138/86 97 Room Air 03/27/24 07:01 03/27/24 07:01 03/27/24 07:01 03/27/24 07:01 03/27/24 07:01 03/27/24 07:01 Narrative: Physical exam: General: No acute distress Psych: Alert and oriented x3, full affect Heart: Regular rate and rhythm, no murmur rub or gallop Lungs: Clear to auscultation bilaterally Abdomen: Nontender. Fundus at 2 below umbilicus. Extremities: Mild edema bilaterally. No calf swelling, tenderness, erythema or warmth. OB - PN: Obj Data Labs Labs: Laboratory Results - last 24 hr 03/26/24 03/27/24 20:02 02:13 WBC 10.05 9.43 RBC 3.10 L 2.99 L Hgb 9.8 L 9.4 L Hct 28.6 L 27.2 L MCV 92 91 MCH 32 31 MCHC 34 35 Plt Count 226 216 BUN 7 5 Creatinine 0.5 0.4 L Estimated Creat Clear 129.91 162.39 Estimated GFR 125 132 Magnesium 5.0 H* AST 77 H 68 H ALT 97 H 88 H OB - PN: A/P Delivery Assessment and Plan (1) Pre-eclampsia affecting puerperium: Problem details: with severe features by transaminitis Status: Acute Plan Bryan is a 34yo seen on hospital day 2 following readmission for preeclampsia with SF by new transaminitis. She is s/p on 03/22 following IOL for preE without SF. She is feeling well this morning with no acute concerns. Benign physical exam. - Antihypertensive regimen includes nifedipine 30 mg XL daily, last dose at 0100. Plan to give next dose this evening at 2100 for ease of administration (avoiding sleep disruption) moving forward. Diligent blood pressure monitoring ongoing. Plan to increase her long-acting antihypertensive regimen is needed or treat any sustained severe range blood pressures. - Magnesium sulfate is ongoing at 2 grams/hour, to be discontinued this evening at 1900 - Serial HELLP labs ongoing - last set at 0200 were stable to mildly improved with AST 68 (from 77), ASL 88 (from 97), Plt 216 (226),Cr 0.4 (0.5) - Robust UOP noted, 2100cc in last 8 hours - Routine PP cares Disposition: Inpatient overnight, hopeful for DC to home tomorrow
[2024-03-27 08:32] LABS: Hemoglobin* 10.5 gm/dL (12.0-16.0); Mean Corpuscular HGB Conc 34 gm/dL (32-36); Mean Corpuscular Hemoglobin 31 pg (26-34); Mean Corpuscular Volume 92 fL (80-100); Platelet Count* 260 K/uL (140-440); Red Blood Count 3.38 m/uL (4.00-5.20); White Blood Count* 9.26 K/uL (4.50-11.00)
[2024-03-27 08:34] LABS: Slide Review Reflex No
[2024-03-27 08:46] LABS: Alanine Aminotransferase* 96 U/L (4-35); Aspartate Amino Transferase* 67 U/L (12-35); Blood Urea Nitrogen* 5 mg/dL (5-24); Creatinine* 0.5 mg/dL (0.5-1.5); Est. Creatinine Clearance* 129.91; Estimated Glomerular Filt Rate 125 ml/min
[2024-03-27 14:04] LABS: Hematocrit 31.8 % (33.0-51.0); Hemoglobin* 10.8 gm/dL (12.0-16.0); Mean Corpuscular HGB Conc 34 gm/dL (32-36); Mean Corpuscular Hemoglobin 31 pg (26-34); Mean Corpuscular Volume 91 fL (80-100); Platelet Count* 282 K/uL (140-440); White Blood Count* 10.29 K/uL (4.50-11.00)
[2024-03-27 14:06] LABS: Slide Review Reflex No
[2024-03-27 14:18] LABS: Alanine Aminotransferase* 95 U/L (4-35); Aspartate Amino Transferase* 64 U/L (12-35); Blood Urea Nitrogen* 5 mg/dL (5-24); Creatinine* 0.5 mg/dL (0.5-1.5); Est. Creatinine Clearance* 129.91; Estimated Glomerular Filt Rate 125 ml/min
[2024-03-27] MEDS: MAGNESIUM Infusion 40 GM/1,000 ML IV.SOLN IVPB (14:30)
[2024-03-27 19:56] LABS: Hematocrit 28.8 % (33.0-51.0); Hemoglobin* 9.8 gm/dL (12.0-16.0); Mean Corpuscular HGB Conc 34 gm/dL (32-36); Mean Corpuscular Hemoglobin 31 pg (26-34); Mean Corpuscular Volume 92 fL (80-100); Platelet Count* 261 K/uL (140-440); Red Blood Count 3.12 m/uL (4.00-5.20); White Blood Count* 9.93 K/uL (4.50-11.00)
[2024-03-27 20:00] LABS: Slide Review Reflex No
[2024-03-27 20:09] LABS: Alanine Aminotransferase* 77 U/L (4-35); Creatinine* 0.5 mg/dL (0.5-1.5); Est. Creatinine Clearance* 129.91; Estimated Glomerular Filt Rate 125 ml/min
[2024-03-27 20:10] LABS: Blood Urea Nitrogen* 10 mg/dL (5-24)
[2024-03-27 21:02] LABS: Aspartate Amino Transferase* 48 U/L (12-35)
[2024-03-28] VITALS (15 sets, daily range): BP systolic 132–156; BP diastolic 77–89; PULSE 63–82; RESP 15–16; TEMP 36.6–36.8; O2SAT 95–97
[2024-03-28] MEDS: IBUPROFEN 600 MG TABLET PO ×3 (01:04→17:01)
[2024-03-28 01:57] LABS: Hematocrit 29.3 % (33.0-51.0); Hemoglobin* 10.1 gm/dL (12.0-16.0); Mean Corpuscular HGB Conc 35 gm/dL (32-36); Mean Corpuscular Hemoglobin 32 pg (26-34); Mean Corpuscular Volume 91 fL (80-100); Platelet Count* 260 K/uL (140-440); Red Blood Count 3.21 m/uL (4.00-5.20); White Blood Count* 10.16 K/uL (4.50-11.00)
[2024-03-28 02:21] LABS: Aspartate Amino Transferase* 45 U/L (12-35); Creatinine* 0.5 mg/dL (0.5-1.5); Est. Creatinine Clearance* 129.91; Estimated Glomerular Filt Rate 125 ml/min
[2024-03-28 02:22] LABS: Alanine Aminotransferase* 76 U/L (4-35); Blood Urea Nitrogen* 13 mg/dL (5-24)
[2024-03-28 03:06] LABS: Slide Review Reflex No
[2024-03-28] MEDS: ACETAMINOPHEN 500 MG TABLET 1000 MG PO ×2 (03:23→12:38)
--- NOTE | 2024-03-28 06:21 | P.OBPN_ITS ---
OB - PN:Subj Subjective Date Seen: 03/28/24 Narrative: Bryan is a 34-year-old seen on day 6 for readmission for preeclampsia with severe features (new transaminitis). She is status post on 03/22 following induction for preeclampsia without severe features. At a blood pressure check and lab check yesterday, she is found to have new transaminitis was admitted. Magnesium sulfate was administered for 24 hours, ending at 1900 on 03/27. She was initiated on nifedipine 30 mg XL at 0100 on 03/28, last dose 2100. Overnight, her blood pressures continued to be above goal with a majority >140/90. Nifedipine was switched to 30mg BID this morning at 0630. She is feeling well overall, but does have a headache. Headache has been constant since yesterday, but does improve with ibuprofen and tyneol. She denies vision changes right upper quadrant pain. No acute concerns. Pain is well controlled, lochia is minimal. She is intermittently tearful, hopeful to discharge to home. We discussed that her BP is not quite optimally controlled, hence the addition o f nifedipine Xl 30mg to now BID. She is normotensive this morning. Generally speaking, she does remain safe from a blood pressure perspective given no severe range BPs. I am reassured that her headache responds to medications, serial labs showed interval improvement. We decided to monitor her BPs Q2H this morning and plan for dismissal to home this afternoon. Addendum at 1700: Ultimately, her BP remained suboptimally controlled with a majority of values above 140/90 throughout the day. Labetolol 200mg BID was added to further optimize her antihypertensive regimen. Recommendation was made for patient to remain inpatient overnight with likely discharge tomorrow pending BP improvement. OB - PN: Obj Exam Physical Exam: Vital signs: Temp Pulse Resp BP Pulse Ox O2 Del Method 98.0 F 72 15 145/79 H 96 Room Air 03/28/24 05:08 03/28/24 05:08 03/28/24 05:08 03/28/24 05:08 03/28/24 05:08 03/28/24 05:08 Narrative: General: No acute distress Psych: Alert and oriented x3, full affect Heart: Regular rate and rhythm, no murmur rub or gallop Lungs: Clear to auscultation bilaterally Abdomen: Nontender. Fundus at 2 below umbilicus. Extremities: Mild edema bilaterally. No calf swelling, tenderness, erythema or warmth. OB - PN: Obj Data Labs Labs: Laboratory Results - last 24 hr 03/27/24 03/27/24 03/27/24 08:25 13:56 19:51 WBC 9.26 10.29 9.93 RBC 3.38 L 3.50 L 3.12 L Hgb 10.5 L 10.8 L 9.8 L Hct 31.0 L 31.8 L 28.8 L MCV 92 91 92 MCH 31 31 31 MCHC 34 34 34 Plt Count 260 282 261 BUN 5 5 10 Creatinine 0.5 0.5 0.5 Estimated Creat Clear 129.91 129.91 129.91 Estimated GFR 125 125 125 AST 67 H 64 H 48 H ALT 96 H 95 H 77 H 03/28/24 01:55 WBC 10.16 RBC 3.21 L Hgb 10.1 L Hct 29.3 L MCV 91 MCH 32 MCHC 35 Plt Count 260 BUN 13 Creatinine 0.5 Estimated Creat Clear 129.91 Estimated GFR 125 AST 45 H ALT 76 H OB - PN: A/P Delivery Assessment and Plan (1) Pre-eclampsia affecting puerperium: Problem details: with severe features by transaminitis Status: Acute Plan Bryan is a 34yo seen on hospital day 3 following readmission for preeclampsia with SF by new transaminitis. She is s/p on 03/22 following IOL for preE without SF. She has been feeling well aside from headache, this does improve with tylenol/ibuprofen. Mag course is complete, interval improvement in her HELLP labs noted. Benign physical exam. Plan this morning was to monitor her BPs for several hours since we adjusted her nifedipine to 30mg BID this morning with plan to discharge in the afternoon. Unfortunately, her BP remained above goal where labetolol 200mg BID was added. Recommendation was made to stay inpatient for further BP optimization overnight. - Antihypertensive regimen includes nifedipine 30 mg XL BID and labetolol 200mg BID. Diligent blood pressure monitoring ongoing. Plan to increase her long- acting antihypertensive regimen is needed or treat any sustained severe range blood pressures. - Magnesium sulfate course x 24 hours complete - Serial HELLP labs demonstrated improvement, plan to recheck as needed - Robust diuresis ongoing - Routine PP cares Hopeful for dismissal to home tomorrow AM pending BP control.
[2024-03-28] MEDS: NIFEdipine 30 MG TAB.ER.24 PO ×2 (06:27→20:57)
--- NOTE | 2024-03-28 09:02 | P.DS_ITS ---
DS: Providers Provider Time Seen by Provider: 09:02 Date Seen: 03/28/24 Date of admission: 03/26/24 17:47 Primary care physician: Renetta Davila CNP Admitting Clinician: Iman Ho MD Attending Physician on discharge: Iman Ho MD Exam Narrative: Exam Narrative: General: No acute distress Psych: Alert and oriented x3, full affect Heart: Regular rate and rhythm, no murmur rub or gallop Lungs: Clear to auscultation bilaterally Abdomen: Nontender. Fundus at 2 below umbilicus. Extremities: Mild edema bilaterally. No calf swelling, tenderness, erythema or warmth. Const: Vital Signs, click to edit/add: Vital Signs - 24 hr 03/27/24 09:26 03/27/24 13:22 03/27/24 17:00 Temperature 97.5 F L 97.5 F L 98.2 F Pulse Rate [Pulse Oximeter] 79 81 82 Respiratory Rate 16 16 16 Blood Pressure [Le ft Arm] 135/84 147/77 H 119/68 Pulse Oximetry 96 98 95 Oxygen Delivery Me thod Room Air 03/27/24 20:57 03/27/24 22:00 03/28/24 01:05 Temperature 97.5 F L 98.0 F Pulse Rate [Pulse Oximeter] 73 81 Respiratory Rate 16 16 Blood Pressure [Le ft Arm] 139/85 135/79 156/86 H Pulse Oximetry 98 96 Oxygen Delivery Me thod Room Air Room Air 03/28/24 01:28 03/28/24 03:22 03/28/24 05:08 Temperature 98.0 F Pulse Rate [Pulse Oximeter] 72 Respiratory Rate 15 Blood Pressure [Le ft Arm] 142/89 H 144/77 H 145/79 H Pulse Oximetry 96 Oxygen Delivery Me thod Room Air 03/28/24 08:31 Temperature 97.9 F Pulse Rate [Pulse Oximeter] 74 Respiratory Rate 16 Blood Pressure [Le ft Arm] 132/79 Pulse Oximetry 95 Oxygen Delivery Me thod Room Air OB - DS: Summary Hospital Course Hospital Course: Bryan is a 34-year-old seen on day 6 for readmission for preeclampsia with severe features (new transaminitis). She is status post on 03/22 following induction for preeclampsia without severe features. At a blood pressure check and lab check yesterday, she is found to have new transaminitis was admitted. Magnesium sulfate was administered for 24 hours, ending at 1900 on 03/27. She was initiated on nifedipine 30 mg XL at 0100 on 03/28, last dose 2100. Overnight, her blood pressures continued to be above goal with a majority >140/90. Nifedipine was switched to 30mg BID this morning at 0630. She is feeling well overall, but does have a headache. Headache has been constant since yesterday, but does improve with ibuprofen and tyneol. She denies vision changes right upper quadrant pain. No acute concerns. Pain is well control led, lochia is minimal. She is intermittently tearful, hopeful to discharge to home. We discussed that her BP is not quite optimally controlled, hence the addition of nifedipine Xl 30mg to now BID. She is normotensive this morning. Generally speaking, she does remain safe from a blood pressure perspective given no severe range BPs. I am reassured that her headache responds to medications, serial labs showed interval improvement. We decided to monitor her BPs Q2H this morning and plan for dismissal to home this afternoon. She will need to monitor her BP BID at home and present for close interval BP check with an MD in the clinic, tentatively on Friday. Time Spent with Patient Time attestation: Total time spent providing and/or coordinating discharge services: Discharge Plan Discharge Disposition: Home, Self-Care Date of Admission: 03/26/24 17:47 Primary Care Provider: Renetta Davila Condition: Stable Anticipated Discharge Date/Time: 03/28/24 14:00 Discharge Medications: Continued ascorbic acid (vitamin C) 1,000 mg capsule 1 g PO Q6H cholecalciferol (vitamin D3) 25 mcg (1,000 unit) capsule 25 mcg PO QDAY DHA 200 mg capsule 200 mg PO DAILY docusate sodium 100 mg Capsule 100 mg PO BID PRNQty: 90 0RF ferrous sulfate 325 mg (65 mg iron) Tablet 325 mg PO Q48H Qty: 90 0RF acetaminophen 500 mg Tablet 1,000 mg PO Q6H PRNQty: 0 0RF ibuprofen 600 mg Tablet 600 mg PO Q6H PRNQty: 60 0RF Changed nifedipine 30 mg tablet extended release 30 mg PO BID Qty: 30 0RF Discharge Orders: Discharge Order (Routine); Ordered 11/17/24 Ordered By: Poppy Heaton Additional Instructions: Discharge instructions were reviewed with the patient including signs and symptoms of infection and home going medications Nothing vaginally for 6 weeks: no tampons or intercourse Do not drive while taking narcotic pain medication(s) Off Work or School for 8 weeks Symptoms to report to doctor: * Bleeding that saturates more than one pad per hour * Passing clots larger than the size of a golf ball * Pain not relieved by prescribed medication * Fever above 100.4 degrees Fahrenheit * A foul vaginal odor * Difficulty in emotions, mood, and functions * Thoughts of hurting yourself and/or * Painful, reddened area in your breast * Any drainage, redness, or tenderness in your IV/epidural site * Severe headache that doesn't improve after taking medications * Changes in vision, including temporary loss of vision, blurred vision, and/or light sensitivity * Upper abdominal pain (usually under ribs on the right side) * Decrease in urination or painful, frequent urinating * Chest pain * Shortness of breath * Tenderness or pain with redness and/swelling in the calf(s) of your leg [facility] for a BP check, tentatively 03/30 (clinic will call you tomorrow to schedule) Please check you BP twice daily and create a log to review at visits Call with BP greater than or equal to 160/110 2-week visit: discuss infant feeding concerns, review control options and screen for anxiety/depression. 6-week visit for an annual exam. consultation services are available to all mothers and babies for the first year after delivery.? To make an appointment, please call [phone]. Follow Up Appointments: Renetta Davila CNP [Primary Care Provider] - Forms: [employer] Info Instructions
[2024-03-28] MEDS: LABETALOL HCL 100 MG TABLET 200 MG PO ×2 (15:10→20:57)
[2024-03-28] MEDS: FERROUS SULFATE 325 MG TABLET PO (18:16)
[2024-03-29] VITALS (10 sets, daily range): BP systolic 128–161; BP diastolic 77–89; PULSE 58–69; RESP 15–16; TEMP 36.6–36.8; O2SAT 96
[2024-03-29] MEDS: IBUPROFEN 600 MG TABLET PO (00:35)
[2024-03-29] MEDS: LABETALOL HCL 100 MG TABLET 200 MG PO (01:06)
--- NOTE | 2024-03-29 08:20 | PM.OBPNVD1 ---
OB - PN:Subj Subjective Date Seen: 03/29/24 Narrative: The patient feels well this morning. No headache. Swelling resolved. BP still elevated on nifedipine ER 30 mg BID and labetalol 200 mg TID. OB - PN: Obj Exam Physical Exam: Vital signs: Temp Pulse Resp BP Pulse Ox O2 Del Method 97.8 F 58 L 16 156/89 H 96 Room Air 03/29/24 07:49 03/29/24 07:49 03/29/24 07:49 03/29/24 07:49 03/29/24 03:27 03/29/24 03:27 Constitutional: Constitutional: no acute distress and cooperative Routine Respiratory Exam: Respiratory: Absent respiratory distress Detailed Upper Extremity Exam: Shoulder/Upper Arm: bilateral: normal inspection OB - PN: A/P Delivery Assessment and Plan (1) Pre-eclampsia affecting puerperium: Problem details: with severe features by transaminitis Status: Acute Plan Increase labetalol to 400 mg po TID. Continue nifedipine ER 30 mg BID. Reassess for discharge later today.
[2024-03-29] MEDS: NIFEdipine 30 MG TAB.ER.24 PO (09:02)
[2024-03-29] MEDS: LABETALOL HCL 100 MG TABLET 400 MG PO ×2 (09:03→14:05)
--- NOTE | 2024-03-29 13:48 | P.DS_ITS ---
DS: Providers Provider Date Seen: 03/29/24 Date of admission: 03/26/24 17:47 Primary care physician: Renetta Davila CNP Admitting Clinician: Iman Ho MD Attending Physician on discharge: Adeola Vasquez MD Date of Discharge: 03/29/24 DS: Diagnosis Discharge Diagnosis (1) Pre-eclampsia affecting puerperium: Status: Acute Problem details: with severe features by transaminitis Exam Const: Vital Signs, click to edit/add: Vital Signs - 24 hr 03/28/24 14:30 03/28/24 14:45 03/28/24 16:49 Temperature Pulse Rate [Pulse Oximeter] Respiratory Rate Blood Pressure [Le ft Arm] 150/87 H 142/85 H 150/81 H Pulse Oximetry Oxygen Delivery Me thod 03/28/24 17:02 03/28/24 18:06 03/28/24 20:53 Temperature 98.0 F 98.0 F Pulse Rate [Pulse Oximeter] 63 66 Respiratory Rate 16 16 Blood Pressure [Le ft Arm] 153/80 H 152/79 H Pulse Oximetry 97 96 Oxygen Delivery Me thod Room Air Room Air 03/28/24 21:50 03/29/24 00:29 03/29/24 00:45 Temperature 98.2 F Pulse Rate [Pulse Oximeter] 62 Respiratory Rate 16 Blood Pressure [Le ft Arm] 137/78 156/86 H 143/80 H Pulse Oximetry 96 Oxygen Delivery Me thod Room Air 03/29/24 03:08 03/29/24 03:27 03/29/24 06:36 Temperature 97.8 F Pulse Rate [Pulse Oximeter] 62 Respiratory Rate 15 Blood Pressure [Le ft Arm] 151/83 H 145/83 H 161/77 H Pulse Oximetry 96 Oxygen Delivery Me thod Room Air 03/29/24 06:55 03/29/24 07:49 03/29/24 10:08 Temperature 97.8 F Pulse Rate [Pulse Oximeter] 58 L Respiratory Rate 16 Blood Pressure [Le ft Arm] 148/88 H 156/89 H 137/81 Pulse Oximetry Oxygen Delivery Me thod 03/29/24 12:06 Temperature 97.9 F Pulse Rate [Pulse Oximeter] 69 Respiratory Rate 16 Blood Pressure [Le ft Arm] 128/77 Pulse Oximetry Oxygen Delivery Me thod Documenting provider has reviewed patient's vital signs: yes Common normals: no apparent distress and oriented x3 General appearance: cooperative and comfortable HENMT: Common normals: normocephalic Head and scalp: normocephalic Resp: Common normals: normal respiratory effort Cardio: Common normals: regular rate and regular rhythm Rate: regular rate Rhythm: regular rhythm GI: Common normals: soft to palpation and non-tender Inspection: normal to inspection Palpation: soft Extremity: Common normals: normal to inspection and no pedal edema Neuro: Common normals: oriented x3 Psych: Common normals: affect normal OB - DS: Summary Hospital Course Hospital Course: The patient is a 34 year old G 1 P 1001 that was admitted to the [facility] on 03/26/24 for preeclampsia with severe features by transaminitis. She was status post normal spontaneous vaginal delivery on 03/22/2024 after presenting in spontaneous labor at 39 weeks, 2 days gestation. She was diagnosed with preeclampsia during her intrapartum course, but did not require antihypertensive medication in labor or at the time of initial discharge. Status at Discharge Functional status at discharge: independent ambulation Overall status at discharge: patient is back to baseline Time Spent with Patient Time attestation: Total time spent providing and/or coordinating discharge services: Time spent: Less than 30 minutes Discharge Plan Discharge Disposition: Home, Self-Care Date of Admission: 03/26/24 17:47 Attending Provider on Discharge: Adeola Vasquez Primary Care Provider: Renetta Davila Condition: Stable Anticipated Discharge Date/Time: 03/28/24 14:00 Discharge Medications: New labetalol 200 mg tablet 400 mg PO TID Qty: 90 1RF nifedipine 30 mg Tablet Extended Release 24hr 30 mg PO BID Qty: 60 0RF Continued ascorbic acid (vitamin C) 1,000 mg capsule 1 g PO Q6H cholecalciferol (vitamin D3) 25 mcg (1,000 unit) capsule 25 mcg PO QDAY DHA 200 mg capsule 200 mg PO DAILY docusate sodium 100 mg Capsule 100 mg PO BID PRNQty: 90 0RF ferrous sulfate 325 mg (65 mg iron) Tablet 325 mg PO Q48H Qty: 90 0RF acetaminophen 500 mg Tablet 1,000 mg PO Q6H PRNQty: 0 0RF ibuprofen 600 mg Tablet 600 mg PO Q6H PRNQty: 60 0RF Changed nifedipine 30 mg tablet extended release 30 mg PO BID Qty: 30 0RF Discharge Orders: Discharge Order (Routine); Ordered 03/29/24 Ordered By: Adeola Vasquez Patient Education: OB High Blood Pressure DC Additional Instructions: Discharge instructions were reviewed with the patient including signs and symptoms of infection and home going medications Nothing vaginally for 6 weeks: no tampons or intercourse Do not drive while taking narcotic pain medication(s) Off Work or School for 8 weeks Symptoms to report to doctor: * Bleeding that saturates more than one pad per hour * Passing clots larger than the size of a golf ball * Pain not relieved by prescribed medication * Fever above 100.4 degrees Fahrenheit * A foul vaginal odor * Difficulty in emotions, mood, and functions * Thoughts of hurting yourself and/or * Painful, reddened area in your breast * Any drainage, redness, or tenderness in your IV/epidural site * Severe headache that doesn't improve after taking medications * Changes in vision, including temporary loss of vision, blurred vision, and/or light sensitivity * Upper abdominal pain (usually under ribs on the right side) * Decrease in urination or painful, frequent urinating * Chest pain * Shortness of breath * Tenderness or pain with redness and/swelling in the calf(s) of your leg [facility] for a BP check by the end of the week (clinic will call you to schedule) Please check you BP twice daily and create a log to review at visits Call with BP greater than or equal to 160/110 2-week visit: discuss feeding concerns, review control options and screen for anxiety/depression. 6-week visit for an annual exam. consultation services are available to all mothers and babies for the first year after delivery.? To make an appointment, please call [phone]. Activity Level: No Restrictions Discharge Diet: Regular Follow Up Appointments: Renetta Davila CNP [Primary Care Provider] - Forms: [facility] Info Instructions DS:Data Additional Comments Additional comments: AST and ALT were trending downward by 03/28/2024.
== END 2024-03-29 14:15 | disposition home or self-care (01) | DRG 561 ==
PROVIDERS: Obstetrics & Gynecology; Admitting Provider Obstetrics & Gynecology; PCP Nurse Practitioner Family; Visit Provider Obstetrics & Gynecology
DX: O14.15 Severe pre-eclampsia, complicating the puerperium (principal)
CPT/HCPCS: 36415; 81001; 82565; 83735; 84450; 84460; 84520; 85027; 85045; A9270; J3475; J7120

== ENCOUNTER 2025-05-10 15:31 | Outpatient (CLI) | payer BC, SELFPAY | END 2025-05-10 15:32 | disposition home or self-care (01) | LOC: NFLDREF 05-17 15:35 | PROVIDERS: PCP Nurse Practitioner Family; Referring Provider Nurse Practitioner Family; Visit Provider Registered Nurse | DX: Z13.6 Encounter for screening for cardiovascular disorders (principal) | CPT/HCPCS: 80061 ==